=== PATIENT | male | born 1945 | race Caucasian/White ===

== ENCOUNTER 2017-07-02 13:45 | Outpatient (CLI) | payer MEDICARE ==
--- NOTE | 2017-07-02 14:30 | RAD ---
CHEST PA AND LATERAL: HISTORY: A 72-year-old male with a history of dyspnea. COMPARISON: 11/17/2012 FINDINGS: Left ICD. Heart size is within normal limits. Lungs are clear. No pneumonia, edema, pleural effusi on, or other acute process. IMPRESSION: 1. No significant acute intrathoracic disease. 2. Mild stable chronic changes. 3. Left implantable cardioverter-defibrillator. 4. Atherosclerosis of the aorta. POS: LUC
== END 2017-07-02 13:46 | disposition home or self-care (01) ==
LOC: RAD 13:45
PROVIDERS: ATTEND Internal Medicine Pulmonary Disease
DX: R06.00 Dyspnea, unspecified (principal); I70.0 Atherosclerosis of aorta; Z95.810 Presence of automatic (implantable) cardiac defibrillator
CPT/HCPCS: 71046

== ENCOUNTER 2017-08-13 20:30 | Outpatient (CLI) | payer MEDICARE | END 2017-08-13 20:31 | disposition home or self-care (01) | LOC: SLEEPLAB 20:30 | PROVIDERS: ATTEND Internal Medicine Pulmonary Disease | DX: G47.33 Obstructive sleep apnea (adult) (pediatric) (principal); R53.83 Other fatigue; J44.9 Chronic obstructive pulmonary disease, unspecified; I11.0 Hypertensive heart disease with heart failure; I50.9 Heart failure, unspecified; I25.10 Atherosclerotic heart disease of native coronary artery without angina pectoris; R09.02 Hypoxemia; I25.2 Old myocardial infarction; Z86.73 Personal history of transient ischemic attack (TIA), and cerebral infarction without residual deficits | CPT/HCPCS: 95810 ==

== ENCOUNTER 2017-09-14 19:30 | Outpatient (CLI) | payer MEDICARE | END 2017-09-14 19:31 | disposition home or self-care (01) | LOC: SLEEPLAB 19:30 | PROVIDERS: ATTEND Internal Medicine Pulmonary Disease | DX: G47.33 Obstructive sleep apnea (adult) (pediatric) (principal); J44.9 Chronic obstructive pulmonary disease, unspecified; I11.0 Hypertensive heart disease with heart failure; I50.9 Heart failure, unspecified; I25.10 Atherosclerotic heart disease of native coronary artery without angina pectoris; I63.9 Cerebral infarction, unspecified; I21.9 Acute myocardial infarction, unspecified; E66.9 Obesity, unspecified; R09.02 Hypoxemia; Z68.38 Body mass index [BMI] 38.0-38.9, adult | CPT/HCPCS: 95811 ==

== ENCOUNTER 2018-08-28 14:29 | Inpatient (IN) | payer MEDICARE ==
--- NOTE | 2018-08-28 15:14 | PDOC.FPRHP ---
- History of Present Illness Chief Complaint: Weakness History of Present Illness: Mr. Palomares presents for a few month history of weakness and falls He reports that he has had generalized weakness that he is unable to further describe, no focal weakness, seizure-like activity, trauma, or syncope. He has burning with urination and urinary frequency for the past 3-4 days. he denies flank pain, fever, or chills. He reports no recent weight gain, orthopnea, but does report occasional chest pain, RUSS, lower abdominal pain, and joint pain. paresthesias in lower extremities and chronic wounds and edema, not worsening. He lives at home with his and son, normally cares for himself. He has been trying to "get off" all of his medications and has not taken any in the past 3 days. ED Course: CTA brain, chest CTA, XRay chest/pelvis CBC, CMP, CK, BNP - Allergies/Adverse Reactions Allergies Allergy/AdvReac Type Severity Reaction Status Date / Time No Known Allergies Allergy Unverified 02/03/18 15:43 - Home Medications Medication Instructions Recorded Confirmed Type Insulin Glargine [Lantus] 25 units SC HS vial 02/07/18 02/07/18 Rx Aspirin [Ecotrin Regular Strength] 325 mg PO DAILY tab 02/11/18 08/28/18 Rx Atorvastatin Calcium [Lipitor] 20 mg PO HS tab 02/11/18 Rx Carvedilol [Coreg] 6.25 mg PO BID tab 02/11/18 08/28/18 Rx Furosemide [Lasix] 80 mg PO 0900,1800 tab 02/11/18 Rx Glimepiride [Amaryl] 2 mg PO BID-AC tab 02/11/18 Rx Levothyroxine Sodium [Synthroid] 50 mcg PO 0600 tab 02/11/18 08/28/18 Rx Mometasone/Formoterol 100/5 2 puff INH BID-RT aer 02/11/18 Rx [Dulera 100 mcg/5 mcg Inhaler] Nitroglycerin [Nitrostat] 0.4 mg SL Q5MIN PRN tab 02/11/18 08/28/18 Rx Spironolactone [Aldactone] 25 mg PO DAILY tab 02/11/18 08/28/18 Rx Tamsulosin HCl [Flomax] 0.4 mg PO HS cap 02/11/18 08/28/18 Rx Acetaminophen [Tylenol Regular 650 mg PO Q4H PRN 08/28/18 08/28/18 History Strength] Acetaminophen [Tylenol Regular 650 mg PO Q4H PRN 08/28/18 08/28/18 History Strength] Fluticasone/Salmeterol [Advair 1 inh IH BID 08/28/18 08/28/18 History Diskus 250/50] Gabapentin [Neurontin] 300 mg PO HS 08/28/18 08/28/18 History - History PMHx:cva with left sided weakness, hypothyroid, copd, neuropathy, coronary artery disease, DMII, HTN, left testicular cancer-non metastatic PSHx: cardiac stents x 4, pacemaker FHx: NC Social: 1-2 packs a day for 60 years, ~ 120 pk years, no alcohol/drugs - Review of Systems General: reports: weight/appetite/sleep changes (sleeps more since becoming blind in right eye). denies: fever/chills Eyes: reports: vision changes ENT: reports: rhinorrhea. denies: nasal congestion Respiratory: reports: shortness of breath. denies: cough Cardiovascular: reports: chest pain, palpitation, paroxysmal nocturnal dyspnea. denies: orthopnea Gastrointestinal: reports: abdominal pain. denies: nausea, vomiting, diarrhea Genitourinary: reports: dysuria, polyuria Skin: denies: rashes, jaundice Musculoskeletal: reports: pain, swelling, arthritis/arthralgias Neurological: reports: numbness (hands and legs), weakness. denies: syncope, seizure Psychological: reports: depression. denies: anxiety - Vital signs BP: 176/103, Pulse: 60, Resp: 22, Temp: 97.9 (Oral), Pain: 6, O2 sat: 97 on 2L Oxygen - Physical Exam Constitutional: NAD, other (somnolent during exam) HEENT: normocephalic and atraumatic, grossly normal hearing, MMM, other (R eye erythema, opacity, injection. white tongue covering, poor dentition) Neck: supple, trachea midline, no LAD, no JVD, no bruits Chest: no-tender to palpation, no lesions Heart: RRR, other (murmur present, distant heart sounds,) FMR H&P: A/P - Problem List (1) DMII (diabetes mellitus, type 2) Current Visit: Yes Status: Acute (2) Elevated brain natriuretic peptide (BNP) level Current Visit: Yes Status: Acute Code(s): R79.89 - OTHER SPECIFIED ABNORMAL FINDINGS OF BLOOD CHEMISTRY (3) Elevated CK Current Visit: Yes Status: Acute (4) Hypothyroid Current Visit: Yes Status: Acute Code(s): E03.9 - HYPOTHYROIDISM, UNSPECIFIED (5) HTN (hypertension) Current Visit: Yes Status: Acute Code(s): I10 - ESSENTIAL (PRIMARY) HYPERTENSION (6) CAD (coronary artery disease) Current Visit: Yes Status: Acute Code(s): I25.10 - ATHSCL HEART DISEASE OF [place] CORONARY ARTERY W/O ANG PCTRS (7) Fall at home Current Visit: No Status: Acute Code(s): W19.XXXA - UNSPECIFIED FALL, INITIAL ENCOUNTER; Y92.009 - UNSP PLACE IN UNSP NON-INSTITUT (PRIVATE) RESIDENCE PLACE (8) Osteoarthritis Current Visit: No Status: Acute Code(s): M19.90 - UNSPECIFIED OSTEOARTHRITIS , UNSPECIFIED SITE (9) Physical deconditioning Current Visit: No Status: Acute Code(s): R53.81 - OTHER MALAISE (10) COPD (chronic obstructive pulmonary disease) Current Visit: Yes Status: Acute - Plan Physical deconditioning - multiple falls at home, reported progressive weakness - PT/OT/CM consulted, inpatient rehab screen - TSH, B12, folate pending elevated BNP - echo pending - cxr/pe neg for acute fluid overload Elevated CK - hold fluids pending echo - monitor daily HTN - continue home meds DMII - continue home meds - mild SSI CAD - aware, no chest pain, EKG neg for ST elevation/T wave changes - trop negx1 UTI - s/p rochepin in ED, continue - monitor CBC COPD - aware, monitor Code: ppx: lovenox Dispo: admit to medical for further evaluation and treatment for deconditioning FMR H&P: Upper Level - Pertinent history 73 yr old male with PMH as noted above and comes in for fall today. He reports recently increasing frequency of falls. Feels like his hips and knees hurt and knees give out. Lives at home with his . Has help from son and brother in law. Last saw PCP about 3 months ago but wasn't having the falls at that time. 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 Says he woke up one morning and was totally blind about 7-8 months ago. 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 Right now, he is having a headache that is all over, and just sierra achy. Has residual left sided UE/LE weakness form stroke 3 years ago. He went from 348 lbs to 265 lbs due to trying to loose weight (cutting down on intake). Last day he took meds was 3 days ago. He has been trying to do away with his meds so he only takes it when he feels bad. - Pertinent findings Gen: patient is resting with eyes closed by easily arousable and is oriented to person, place, and time. in NAD. Heart: faint heart sounds, with RRR, and no M/R/G noted Lungs: CTAB, no wheezes, rhales, crackles, rhonchi however he has poor respiratory effort and Ext: Elephantitis changes of bilateral lower extremities with thickened scaly discolored EKG: left bundle branch block, NSR, T wave inversion in lateral lead - Plan Date/Time: 08/28/181511 I, [Taylor Milton], have evaluated this patient and agree with findings/plan as outlined by internet specialist resident. Pertinent changes/additions are listed here. 73 yr old male presents with weakness and multiple falls UTI -reports dysuia, no WBC -patient has intermittently been taking amoxicillin -urine culture pending -cont on rocephin Possible new onset heart failure -BNP elevated from 39 to 250 over 8 months period. -echo pending Weakness likely 2/2 UTI vs New onset heart failure vs physical deconditioning -treat UTI -ECHO -PT/OT consults Diabetes, CAD, and other chronic medical conditions per internet specialist's note above PCP: Mireya Code Status: Full as discussed with patient and daughter and grandaughter were at bedside Dispo: likely in 2-3 days however dependent on clinical course and would likely benefit from rehab placement for deconditioning Addendum - Attending - Attending Attestation Date/Time: 08/28/182128 I personally evaluated the patient and discussed the management with Dr. Larry and team. I agree with and repeated the History, Examination, Assessment and Plan documented above with any addition or exceptions noted below. Vitals reviewed NAD,resting comfortably NCAT, PERRL, no injection; pinna normal without lesion or deformity; mmm without lesion No LAD BS+, NTTP, no palp organomegaly Lower extremity chronic changes noted Motor 5/5 BLE, unable to check proprioception Low FA and B12; will supplement. Consider IM/IV b12 as well. He is describing symptoms that could easily fit with these deficiencies. He also is on a PPI and metformin, both a/w these deficiencies.
[2018-08-28] MEDS ORDERED: Acetaminophen 325 MG TAB PO PRN (16:28)
[2018-08-28] MEDS ORDERED: HumaLOG 300 UNITS/3 ML VIAL SC PRN ×2 (16:28)
[2018-08-28] MEDS ORDERED: Dextrose 5% in Water 1,000 ML IV PRN (16:28)
[2018-08-28] MEDS ORDERED: Ondansetron PF 4 MG/2 ML Vial IVP PRN (16:28)
[2018-08-28] MEDS ORDERED: Ondansetron ODT 4 MG TAB PO PRN (16:28)
[2018-08-28] MEDS ORDERED: Dextrose 50% Abboject 50 ML SYRINGE SLOW IVP PRN (16:28)
[2018-08-28 17:29] VITALS: BMI 38.0
[2018-08-28 19:02] LABS: Folate (Folic Acid) 5.4 ng/mL (7.0-31.4)
[2018-08-28] MEDS: Cyanocobalamin (Vitamin B-12) 1,000 MCG TAB PO SCH (20:35)
[2018-08-28] MEDS: Insulin Glargine 25 UNITS in Pre-Filled Syringe SC SCH (20:36)
[2018-08-28] MEDS: Nicotine 21 MG PATCH TD SCH (20:36)
[2018-08-28] MEDS ORDERED: Folic Acid 1 MG TAB PO SCH (21:00)
[2018-08-28 21:52] LABS: Troponin I 0.021 ng/mL (< 0.028)
[2018-08-29 05:02] LABS: #Eosinphils 0.3 thou/uL (0.0-0.7); #Lymphocytes 1.1 thou/uL (1.20-3.40); #Monocytes 0.4 thou/uL (0.11-0.59); #Neutrophils 3.4 thou/uL (1.40-6.50); %Basophils 0.6 % (0.0-1.0); %Eosinophils 5.4 % (0.0-10.0); %Lymphocytes 21.3 % (21.0-51.0); %Monocytes 7.6 % (0.0-10.0); Mean Corpuscular HGB CONC 32.7 g/dL (32.0-36.0); Mean Corpuscular Hemoglobin 33.2 pg (27.0-31.0); Mean Platelet Volume 8.4 fL (7.4-10.4); Platelet Count 121 thou/uL (130-400); White Blood Cell (WBC) Count 5.3 thou/uL (4.8-10.8)
[2018-08-29 05:27] LABS: ALT (SGPT) 14 U/L (8-55); AST (SGOT) 20 U/L (5-34); Albumin 3.3 g/dL (3.4-4.8); Alkaline Phosphatase 48 U/L (40-150); Anion Gap 9 mmol/L (10-20); BUN (Urea Nitrogen) 10 mg/dL (8.4-25.7); CK (CPK) 147 U/L (30-200); Calc. Creatinine Clearance 141 mL/min (70-130); Calcium 8.8 mg/dL (7.8-10.44); Carbon Dioxide 32 mmol/L (23-31); Chloride 102 mmol/L (98-107); Estimated GFR-MDRD Greater than 90; Globulin 2.4 g/dL (2.4-3.5); Glucose 90 mg/dL (83-110); Potassium 3.9 mmol/L (3.5-5.1); Protein, Total 5.7 g/dL (5.8-8.1); Sodium 139 mmol/L (136-145)
--- NOTE | 2018-08-29 07:01 | PDOC.FM ---
- Subjective Subjective: pt sitting up in bed, attempting to urinate into folgers container. reports improved weakness, denies SOB/CP - Objective Vital Signs & Weight: Vital Signs (12 hours) Temp Pulse Resp BP BP Pulse Ox 08/29/18 06:40 92 L 08/29/18 03:31 99.4 F 62 20 164/71 H 91 L 08/28/18 20:28 98 F 64 18 132/77 93 L 08/28/18 19:50 93 L Weight Weight 120.202 kg Result Diagrams: 08/29/18 04:32 08/29/18 04:32 Phys Exam - Physical Examination Constitutional: NAD HEENT: moist MMs Neck: no JVD Respiratory: wheezing present Cardiovascular: RRR, no significant murmur Gastrointestinal: soft Musculoskeletal: edema present Neurological: moves all 4 limbs Lymphatic: no nodes Psychiatric: normal affect Skin: normal turgor Dx/Plan (1) DMII (diabetes mellitus, type 2) Status: Acute (2) Elevated brain natriuretic peptide (BNP) level Code(s): R79.89 - OTHER SPECIFIED ABNORMAL FINDINGS OF BLOOD CHEMISTRY Status : Acute (3) Elevated CK Status: Acute (4) Hypothyroid Code(s): E03.9 - HYPOTHYROIDISM, UNSPECIFIED Status: Acute (5) HTN (hypertension) Code(s): I10 - ESSENTIAL (PRIMARY) HYPERTENSION Status: Acute (6) CAD (coronary artery disease) Code(s): I25.10 - ATHSCL HEART DISEASE OF [place] CORONARY ARTERY W/O ANG PCTRS Status: Acute (7) Fall at home Code(s): W19.XXXA - UNSPECIFIED FALL, INITIAL ENCOUNTER; Y92.009 - UNSP PLACE IN [email or web address]ENCE [facility] Status: Acute (8) Osteoarthritis Code(s): M19.90 - UNSPECIFIED OSTEOARTHRITIS, UNSPECIFIED SITE Status: Acute (9) Physical deconditioning Code(s): R53.81 - OTHER MALAISE Status: Acute (10) COPD (chronic obstructive pulmonary disease) Status: Acute - Plan Plan: Physical deconditioning - multiple falls at home, reported progressive weakness - PT/OT/CM consulted, inpatient rehab screen - TSH wnl - B12, folate low, supplement elevated BNP - echo pending - cxr/pe neg for acute fluid overload Elevated CK - hold fluids pending echo - monitor daily HTN - continue home meds DMII - continue home meds - mild SSI CAD - aware, no chest pain, EKG neg for ST elevation/T wave changes - trop negx1 UTI - s/p rochepin in ED, continue - monitor CBC COPD - aware, monitor Code: full ppx: lovenox Dispo: further evaluation and treatment for deconditioning
[2018-08-29] MEDS: Enoxaparin Sodium 40 MG/0.4 ML SYRINGE SC SCH (09:17)
[2018-08-29] MEDS: Insulin Glargine 25 UNITS in Pre-Filled Syringe SC SCH ×2 (09:17→21:28)
[2018-08-29] MEDS: Folic Acid 1 MG TAB PO SCH (09:17)
--- NOTE | 2018-08-29 15:17 | PRG ---
DATE OF SERVICE: Mr. Palomares is a 73-year-old man, who was admitted with multiple falls at home and generalized weakness. These seem to be related to probably his obesity and sedentary habits. He was also found to have significant B12 and folate deficiencies and these are being corrected. This morning, he is awake, alert, in no distress. His CBC did show a normal hemoglobin of 13, but an MCV of 102. Chemistries; sodium is 139, potassium 3.9, chloride 102, bicarb 32, BUN 10, creatinine 0.77. Liver enzymes were normal. He is also a type 2 diabetic with glucose ranging in the hospital here from 106 to 110. Likely ready for discharge today or tomorrow. Job ID: [id number]
[2018-08-29] MEDS ORDERED: Nitroglycerin 0.4 MG TAB (25 Tab Bottle) SL PRN (16:21)
[2018-08-29] MEDS ORDERED: hydrALAZINE 20 MG/ML VIAL SLOW IVP PRN (16:22)
[2018-08-29] MEDS: Carvedilol 6.25 MG TAB PO SCH (17:51)
[2018-08-29] MEDS ORDERED: cefTRIAXone\\ROCEPHIN 1 GM in Sodium Chloride 0.9% 100 ML IVPB SCH (18:00)
[2018-08-29] MEDS: Mometasone/Formoterol 120 PUFF INHALER INH SCH (19:28)
[2018-08-29] MEDS ORDERED: Gabapentin 300 MG CAP PO SCH (21:00)
[2018-08-29] MEDS ORDERED: Tamsulosin HCl 0.4 MG CAP PO SCH (21:00)
[2018-08-29] MEDS: Cyanocobalamin (Vitamin B-12) 1,000 MCG TAB PO SCH (21:28)
[2018-08-29] MEDS: Nicotine 21 MG PATCH TD SCH (21:33)
[2018-08-30] MEDS ORDERED: Levothyroxine Sodium 50 MCG TAB PO SCH (06:00)
--- NOTE | 2018-08-30 06:35 | PDOC.FM ---
- Subjective Subjective: pt sitting comfortably in chair, reports feeling better, ambulating and denies SOB - Objective Vital Signs & Weight: Vital Signs (12 hours) Temp Pulse Resp BP Pulse Ox 08/30/18 04:24 97.4 F L 61 16 129/62 93 L 08/30/18 00:00 97.6 F 62 18 169/81 H 93 L 08/29/18 20:05 98 F 60 18 181/77 H 94 L 08/29/18 19:28 62 16 Weight Admit Weight 120.202 kg Weight 120.202 kg I&O: 08/28/18 08/29/18 08/30/18 06:59 06:59 06:59 Intake Total 1250 Output Total 225 Balance 1025 Result Diagrams: 08/29/18 04:32 08/29/18 04:32 Phys Exam - Physical Examination Constitutional: NAD HEENT: moist MMs Neck: full ROM Respiratory: clear to auscultation bilateral Cardiovascular: RRR, no significant murmur Gastrointestinal: soft Musculoskeletal: edema present Neurological: moves all 4 limbs Lymphatic: no nodes Psychiatric: normal affect Deviation from normal: LE rash at baseline Dx/Plan (1) DMII (diabetes mellitus, type 2) Status: Acute (2) Elevated brain natriuretic peptide (BNP) level Code(s): R79.89 - OTHER SPECIFIED ABNORMAL FINDINGS OF BLOOD CHEMISTRY Status : Acute (3) Elevated CK Status: Acute (4) Hypothyroid Code(s): E03.9 - HYPOTHYROIDISM, UNSPECIFIED Status: Acute (5) HTN (hypertension) Code(s): I10 - ESSENTIAL (PRIMARY) HYPERTENSION Status: Acute (6) CAD (coronary artery disease) Code(s): I25.10 - ATHSCL HEART DISEASE OF [place] CORONARY ARTERY W/O ANG PCTRS Status: Acute (7) Fall at home Code(s): W19.XXXA - UNSPECIFIED FALL, INITIAL ENCOUNTER; Y92.009 - UNSP PLACE IN UNSP NON-INSTITUT (PRIVATE) RESIDENCE PLACE Status: Acute (8) Osteoarthritis Code(s): M19.90 - UNSPECIFIED OSTEOARTHRITIS, UNSPECIFIED SITE Status: Acute (9) Physical deconditioning Code(s): R53.81 - OTHER MALAISE Status: Acute (10) COPD (chronic obstructive pulmonary disease) Status: Acute - Plan Plan: Physical deconditioning - multiple falls at home, reported progressive weakness - PT/OT/CM consulted, inpatient rehab screen - TSH wnl - B12, folate low, supplement elevated BNP - echo pending - cxr/pe neg for acute fluid overload - will start PO lasix, IVPx1 Elevated CK - hold fluids pending echo - monitor daily HTN - continue home meds - consistently elevated, start lisinopril-HCTZ DMII - continue home meds - mild SSI CAD - aware, no chest pain, EKG neg for ST elevation/T wave changes - trop negx1 UTI - s/p rochepin in ED, continue - monitor CBC COPD - aware, monitor Code: full ppx: lovenox Dispo: continue treatment for deconditioning, stable for DC when available Addendum - Attending - Attending Attestation Date/Time: 08/30/18 7912 I personally evaluated the patient and discussed the management with Dr. Larry. I agree with the History, Examination, Assessment and Plan documented above with any addition or exceptions noted below. The patient is sitting up in a chair and is breathing well off oxygen. he states he is feeling much better. Awaiting inpt rehab placement.
[2018-08-30] MEDS ORDERED: Furosemide 40 MG/4 ML VIAL SLOW IVP SCH (06:45)
[2018-08-30] MEDS: Mometasone/Formoterol 120 PUFF INHALER INH SCH ×2 (07:24→19:30)
[2018-08-30] MEDS ORDERED: Potassium Chloride 20 MEQ TAB PO SCH (08:00)
[2018-08-30] MEDS ORDERED: Spironolactone 25 MG TAB PO SCH (09:00)
[2018-08-30] MEDS ORDERED: Lisinopril/Hydrochlorothiazide 10 mg/12.5 mg Tablet PO SCH (09:00)
[2018-08-30] MEDS ORDERED: Aspirin 325 mg Enteric Coated Tablet PO SCH (09:00)
[2018-08-30] MEDS: Enoxaparin Sodium 40 MG/0.4 ML SYRINGE SC SCH (10:34)
[2018-08-30] MEDS: Insulin Glargine 25 UNITS in Pre-Filled Syringe SC SCH (10:34)
[2018-08-30] MEDS: Folic Acid 1 MG TAB PO SCH (10:36)
[2018-08-30] MEDS: Carvedilol 6.25 MG TAB PO SCH (10:38)
[2018-08-30 17:48] VITALS: BP 148/75; TEMP 99.4
[2018-08-30] MEDS ORDERED: Cipro 250 MG TAB PO SCH (20:00)
--- NOTE | 2018-08-31 03:44 | DIS ---
DATE OF ADMISSION: 08/28/2018 DATE OF DISCHARGE: 08/30/2018 ADMITTING ATTENDING: Prakash Shields MD. RESIDENT: Triston Larry DO. CONSULT: None. IMAGING: Echocardiogram pending read. MEDICATIONS: 1. Lantus 25 units SC h.s. 2. Aspirin 325 mg p.o. daily. 3. Coreg 6.25 mg p.o. b.i.d. 4. Nitrostat 0.4 mg SL q.5 minutes p.r.n. chest pain. 5. Aldactone 25 mg p.o. daily. 6. Flomax 0.4 mg p.o. at bedtime. 7. Synthroid 50 mcg p.o. at 0600. 8. Advair Diskus one inhaled b.i.d. 9. Acetaminophen 650 mg p.o. q.4 hours p.r.n. 10. Gabapentin 300 mg p.o. at bedtime. 11. Ciprofloxacin 250 mg p.o. b.i.d. 12. Vitamin B12 1000 mcg p.o. at bedtime. 13. Folic acid 1 mg p.o. daily. 14. Lasix 20 mg p.o. daily. 15. Lisinopril and hydrochlorothiazide 1 tab p.o. daily. 16. Potassium chloride 20 mEq p.o. q.a.m. with meals. DISCONTINUE MEDICATIONS: Amoxicillin 875 mg p.o. b.i.d. PRIMARY DIAGNOSIS: Physical deconditioning. SECONDARY DIAGNOSES: 1. Elevated BNP. 2. Elevated CK. 3. Hypertension. 4. Diabetes mellitus type 2. 5. Coronary artery disease. 6. Urinary tract infection. 7. Chronic obstructive pulmonary disease. HISTORY OF PRESENT ILLNESS AND HOSPITAL COURSE: Mr. Palomares is a 73-year-old male who presents for a few month history of weakness and falls. He has generalized weakness that he is unable to further describe. No focal weakness, seizure activity, trauma, or syncope. He also reports the burning with his urination and urinary frequency over the past 3-4 days. Denies flank pain, fever, or chills. No recent weight gain or orthopnea. Does report occasional chest pain, dyspnea on exertion, lower abdominal pain, joint pain, paresthesias in his lower extremities, and chronic wounds with edema not worsening. He lives at home with his and son and has recently been trying to discontinue all of his medications and has not taken any in the past 3 days. He presented to the ER like this. CTA of brain was negative. Chest CTA and x-ray of chest and pelvis were all negative. CBC, CMP, CK, and BMP were significant for a transaminitis, an elevated CK, and an elevated BNP without a diagnosis of congestive heart failure. Significant past medical history for coronary artery disease and a CVA with left-sided weakness. The patient was admitted to telemetry for further monitoring and evaluation. Blood pressure was elevated during hospital stay. Medications were started to control this. Lasix was given for fluid overload, presumably related to congestive heart failure. Echo was obtained, not read, placed on followup service to follow up with when the patient is in inpatient rehab. It was also discovered that the patient had vitamin B12 and folate deficiencies consistent with his overall health status, malnourished, and vitamin deficient. These were repleted. CK normalized and volume overload was treated. The patient status improved, determined that he was a candidate for inpatient rehab and this would be the best way to improve the patient's generalized weakness and deconditioning. He was deemed stable for discharge to inpatient rehab. DISCHARGE INSTRUCTIONS: 1. Location: [facility]. 2. Diet: ADA, heart healthy. 3. Activity: As tolerated. 4. Therapies: PT and OT. 5. Follow up with inpatient rehab team upon discharge. Job ID: [id number]
[2018-08-31] MEDS ORDERED: Furosemide 20 MG TAB PO SCH (09:00)
--- NOTE | 2018-09-02 05:04 | PQF ---
[employer] Alarm Investigator Crystal Reports Winform Viewer ASAFELENO NORIS MONCADA [id number] [id number] [id number] CLINICAL DOCUMENTATION CLARIFICATION FORM: POST DISCHARGE Addendum to original discharge summary date: ____ Late entry note date: __ DATE: 09/02/18 ATTN: NORIS Vasquez Please exercise your independent, professional judgment in responding to the clarification form. Clinical indicators are provided on the bottom of this form for your review Can you please further specify the type and acuity of patients heart failure. Please check appropriate box(s): HEART FAILURE: A. TYPE: [ ] Systolic / HFrEF [ X ] Diastolic / HFpEF [ ] Combined Systolic / Diastolic B. ACUITY [ X ] Acute [ ] Acute on Chronic [ ] Chronic [ ] Other diagnosis please specify [ ] Unable to determine For continuity of documentation, please document condition throughout progress notes and discharge summary. Thank You. CLINICAL INDICATORS - SIGNS / SYMPTOMS / LABS H and P 4/ pg5 Dr. Larry- Possible new onset heart failure H and P 08/[address] Larry- BNP elevated from 39 to 250 over 8 months period H and P 08/[address] Larry- Weakness likely 2/2 UTI vs New onset hearth failure vs physical deconditioning Family Medicine pg.2PN 08/29 Dr. Larry - Elevated CK DS 08/30/[address] Larry- Lasix was given for fluid overload, presumably related to congestive heart failure DS 08/30/[address] Larry- Does report occasional chest pain, dyspnea on exertion chronic wounds with edema not worsening. DS 08/30/[address] Larry- elevated BNP without diagnosis of congestive heart failure. Echocardiogram (TTE) Report 08/30 - LVEF estimated at 55-60% Echocardiogram (TTE) Report:08/30 - E/A flow reversal noted. Suggestive of diastolic dysfunction RISKS: Diabetes- H and P 4/[address] Larry Hypertension- H and P 4/[address] Larry Coronary artery disease- H and P 4/[address] Larry 1-2 packs a day for 60 years- H and P 4/[address] Larry Obesity Progress Note 08/[address] Juarez TREATMENTS: Furosemide (Lasix) 40mg IV-MAR Spironolactone 25mg PO Daily-MAR Carvedilol 6.25 mg PO BID-MAR Echocardiogram (TTE) (This form is maintained as a part of the permanent medical record) 2014 [employer]. All Rights Reserved Jonathan [email or web address] [not provided] [email or web address]
== END 2018-08-30 19:05 | DRG 689 ==
LOC: ERS 14:29 → T4-B 17:01 → 2NO 19:36
PROVIDERS: ADMIT Emergency Medicine; ATTEND Emergency Medicine
DX: N39.0 Urinary tract infection, site not specified (principal); I50.31 Acute diastolic (congestive) heart failure; I69.354 Hemiplegia and hemiparesis following cerebral infarction affecting left non-dominant side; E03.9 Hypothyroidism, unspecified; J44.9 Chronic obstructive pulmonary disease, unspecified; E11.40 Type 2 diabetes mellitus with diabetic neuropathy, unspecified; I25.10 Atherosclerotic heart disease of native coronary artery without angina pectoris; I11.0 Hypertensive heart disease with heart failure; H54.40 Blindness, one eye, unspecified eye; M19.90 Unspecified osteoarthritis, unspecified site; F17.210 Nicotine dependence, cigarettes, uncomplicated; E53.8 Deficiency of other specified B group vitamins; F32.9 Major depressive disorder, single episode, unspecified; Z79.4 Long term (current) use of insulin; Z91.040 Latex allergy status; Z79.82 Long term (current) use of aspirin; Z95.5 Presence of coronary angioplasty implant and graft; Z95.0 Presence of cardiac pacemaker; Z79.899 Other long term (current) drug therapy; Z79.84 Long term (current) use of oral hypoglycemic drugs; R29.6 Repeated falls; E66.9 Obesity, unspecified; Z68.38 Body mass index [BMI] 38.0-38.9, adult; Z79.51 Long term (current) use of inhaled steroids; I25.2 Old myocardial infarction
CPT/HCPCS: 36415; 36416; 80053; 82550; 82607; 82746; 84443; 85025; 85652; 93005; 93306; J0696; J1650; J1825; J1940; J7050

== ENCOUNTER 2019-10-06 16:23 | Inpatient (IN) | payer MEDICARE ==
[~2019-10-06 16:23] MED LIST: Iopamidol 370 76% 100 ML VIAL ONE
[2019-10-06] MEDS ORDERED: hydrALAZINE 20 MG/ML VIAL ONE (19:05)
--- NOTE | 2019-10-06 19:30 | PDOC.FPRHP ---
- History of Present Illness Chief Complaint: L sided weakness and slurred speech History of Present Illness: 74 y/o M with pmhx of DM II, previous CVA with L sided deficits, a dn prior TN presents to ER from [place] transfer after 11:30 AM his HH nurse nothiced his speech was slurred and more weakness on L side from chronic deficits. Pt states he felt normal and did not notice the concerns the nurse had. Pt was taken to ER in [place]. CT head showed old vs subacute cva. See report for full details. Pt states his symptoms are completely resolved upon time evaluated by me. He denies any LH, dizziness, MCNALLY. 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 C/o CP that occurs nightly. denies cough, fever or chills. Pt takes medications as prescribed, but unsure of medication names. All meds filled at [facility] pharmacy in [place]. PCP Dr. Carver, [place] - Allergies/Adverse Reactions Allergies Allergy/AdvReac Type Severity Reaction Status Date / Time No Known Allergies Allergy Verified 10/07/19 01:52 - Home Medications Medication Instructions Recorded Confirmed Type Insulin Glargine [Lantus] 25 units SC HS vial 02/07/18 08/29/18 Rx Aspirin [Ecotrin Regular Strength] 325 mg PO DAILY tab 02/11/18 08/28/18 Rx Carvedilol [Coreg] 6.25 mg PO BID tab 02/11/18 08/28/18 Rx Levothyroxine Sodium [Synthroid] 50 mcg PO 0600 tab 02/11/18 08/28/18 Rx Spironolactone [Aldactone] 25 mg PO DAILY tab 02/11/18 08/28/18 Rx Tamsulosin HCl [Flomax] 0.4 mg PO HS cap 02/11/18 08/28/18 Rx Acetaminophen [Tylenol Regular 650 mg PO Q4H PRN 08/28/18 08/28/18 History Strength] Fluticasone/Salmeterol [Advair 1 inh IH BID 08/28/18 08/28/18 History Diskus 250/50] Gabapentin [Neurontin] 300 mg PO HS 08/28/18 08/28/18 History Cipro 250 mg PO BID@0600,1999 #6 tab 08/30/18 Rx Cyanocobalamin (Vitamin B-12) 1,000 mcg PO HS #30 tab 08/30/18 Rx [Vitamin B-12] Folic Acid [Folvite] 1 mg PO DAILY #30 tab 08/30/18 Rx Furosemide [Lasix] 20 mg PO DAILY #30 tab 08/30/18 Rx Lisinopril/Hydrochlorothiazide 1 tab PO DAILY #30 tab 08/30/18 Rx [Prinizide] Nitroglycerin [Nitrostat] 0.4 mg SL Q5MIN PRN #0 tab 08/30/18 10/07/19 Rx Potassium Chloride [K-Dur] 20 meq PO QAM-WM #30 tab 08/30/18 10/07/19 Rx Albuterol Sulfate 2 puff INH BID PRN 10/07/19 10/07/19 History Atorvastatin Calcium [Lipitor] 40 mg PO HS #30 tab 10/07/19 Rx Clopidogrel Bisulfate [Plavix] 75 mg PO DAILY #30 tablet 10/07/19 Rx Folic Acid/Vit B Comp W-C 1 tab PO DAILY #30 tab 10/07/19 Rx [Nephro-Anushka] Insulin Glargine,Hum.Rec.Anlog 20 unit SQ DAILY 10/07/19 10/07/19 History [Basaglar Kwikpen U-100] Lisinopril [Zestril] 5 mg PO DAILY 10/07/19 10/07/19 History - History PMHx: HTN, HLD, DM II, HFpEF, penile skin cancer, elephantiasis and lymphedema BLE's, CAD And [place] S/P 4 stents, hypothyroidism, previous CVA with L sided deficits, COPD, R eye blindness, DJD lumbar spine PSHx: Pacemaker placement, Stents X4 05/2008 and 08/25/2011 FHx: father: DM , [place], CAD Son: suddenly via [place] at age 51, this occurred 2 weeks ago and pt grieving. Social: Lives at home with . Denies etoh, or drug use. smoked >50 years. Medications: medications need to be reconciled with pharmacy as pt unsure of medications. - Review of Systems General: denies: fever/chills Eyes: reports: other (R eye blind) Respiratory: denies: cough, shortness of breath Cardiovascular: reports: chest pain, edema. denies: palpitation Gastrointestinal: denies: nausea, vomiting, diarrhea, constipation Skin: reports: rashes (BLE) Musculoskeletal: reports: arthritis/arthralgias Psychological: reports: other (grieving from loss of son X2 weeks ago) - Vital signs BP: 160/74 HR: 85 RR: 18 Tmax: 97.9 Pox: 85% on ra Wt: 116 kg - Physical Exam Constitutional: NAD, awake, alert and oriented HEENT: no scleral icterus, grossly normal hearing, MMM -HEENT: R eye dull and clouded lens. L eye reactive pupil 2 mm Neck: supple, trachea midline Heart: RRR, normal S1/S2 -Heart: Distant heart sounds Lungs: CTAB, no respiratory distress, good air movement, no rales/rhonchi, no wheezing, no retractions Abdomen: soft, non-tender, bowel sounds present -Musculoskeletal: LLE decreased ROM and diminished strength, 4/5. Right sided and DEEP extremities 5/5 strength Neurological: no focal deficit, CN II-XII intact (with exception of R pupil non- reacative), normal sensation -Neurological: residual LLE weakness form previous CVA [id number] intact B [id number] intact B no altered sensation in 4 ext. -Skin: BLE bumpy, waxy and darkened skin BLE edema -Heme/Lymphatic: lymphedema in BLE Psychiatric: normal mood and affect, good judgment and insight FMR H&P: Results - Labs Result Diagrams: 10/07/19 03:27 10/07/19 03:27 - Radiology Interpretation CT scan - head Status: report reviewed by me (see report for full details.) FMR H&P: A/P - Problem List (1) TIA (transient ischemic attack) Status: Acute Code(s): G45.9 - TRANSIENT CEREBRAL ISCHEMIC ATTACK, UNSPECIFIED (2) COPD (chronic obstructive pulmonary disease) Status: Acute (3) DMII (diabetes mellitus, type 2) Status: Acute (4) HTN (hypertension) Status: Acute Code(s): I10 - ESSENTIAL (PRIMARY) HYPERTENSION (5) History of CVA (cerebrovascular accident) Status: Acute Code(s): Z86.73 - PRSNL HX OF TIA (TIA), AND CEREB INFRC W/O RESID DEFICITS (6) Pacemaker Status: Acute Code(s): Z95.0 - PRESENCE OF CARDIAC PACEMAKER (7) History of penile cancer Status: Acute Code(s): Z85.49 - PERSONAL HISTORY OF MALIG NEOPLASM OF MALE GENITAL ORGANS (8) History of heart attack Status: Acute Code(s): I25.2 - OLD MYOCARDIAL INFARCTION - Plan 74 y/o M admitted to Tele inpt for TIA/CVA rule out TIA, CVA rule out - CT head: small to mod infarction in R anterior cerebral artery territory, occurring sometime after 08/28/18. uncertain of old vs subacute. 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 No acute hemorrhages. Refer to official radiology report for more details. - MRI, CTA head and neck, and TTEcho ordered. -Pt has pacemaker and will need to find out if compatible with MRI. Nursing communication order placed. - Previous echo in 09/12: ef 55-60% with diastolic dysfunction - 24 hour permissive HTN. Symptoms tsarted around 11:30 AM 10/05. - FLP, A1C ordered DM II - Pt unsure of any home medications. He knows he has 7 different ones. Will start ASA and statin therapy until home med reconciled. -Nursing communication order set to seek pharmacy med recs. [facility] [place] [facility]. - SSI, ACHS accuchecks. Hx of TN with X4 stents Pacemaker placement - 6 yrs ago Hypothyroidism - continue home meds. 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 PT states he takes a blood thinner. Will continue once med reconciliation Dispo: stable, admit to tele inpt for TIA and CVA rule out. FMR H&P: Upper Level - Pertinent history 74 y/o M PMHx CVA with residual left sided weakness, hypothyroidism, COPD, CAD s /p stents x4, DM2, HTN presents as transfer from [place] ER for left sided weakness and slurred speech. His home health nurse had noted the changes and sent him to the ER. He denies noticing any slurred speech or worsened weakness. He has baseline residual left sided weakness that he states hasn't changed. In the ER in [place] he was given aspirin 325mg. In the ER in [place] he was given hydralazine 10mg. - Pertinent findings Vitals: BP 201/90, HR 60, RR 16, Temp 97.8, O2 sat 98% on RA PE: Gen - alert, oriented, NAD Ext - chronic vascular skin changes of lower extremities with edema bilaterally Neuro - CN II-XII intact, 4/5 strength of LUE, otherwise 5/5 strength with no sensory changes Brain CT: Small to mod infarcation in R ant cerebral artery distribution, new from prior CT in August. Mod old infarction in R middle cerebral artery distribution. No acute hemorrhage CXR: no acute process - Plan Date/Time: 10/06/191929 I, Taylor Rowe MD, PGY-3, have evaluated this patient and agree with findings/ plan as outlined by manager internal resident. Pertinent changes/additions are listed here. 1. CVA vs TIA s/p aspirin. Brain CT with possible acute vs subacute CVA. -Obs on stroke -Neuro checks -No TPA as back at baseline -CTA head and neck -MRI brain -Aspirin daily -FLP -PT/OT/ST 2. CAD s/p stents x4 -Cont home meds, needs med rec 3. DM2 -Accuchecks ACHS -SSI -Cont home meds, needs med rec 4. HTN -Needs med rec -Will continue 24 hrs permissive HTN Dispo: Obs on stroke VTE ppx: on anticoag at home, will get med rec and continue home med Code Status: Full Addendum - Attending - Attending Attestation Date/Time: 10/07/192047 I personally evaluated the patient and discussed the management with the team. I agree with the History, Examination, Assessment and Plan documented above with any addition or exceptions noted below.
[2019-10-06] MEDS ORDERED: Acetaminophen 650 MG Suppository PR PRN (19:40)
[2019-10-06] MEDS ORDERED: Dextrose 50% Abboject 50 ML SYRINGE SLOW IVP PRN (19:47)
[2019-10-06] MEDS ORDERED: HumaLOG 300 UNITS/3 ML VIAL SC PRN ×2 (19:47)
[2019-10-06] MEDS ORDERED: Dextrose 5% in Water 1,000 ML IV PRN (19:47)
[2019-10-06] MEDS ORDERED: Atorvastatin Calcium 40 MG TAB PO SCH (21:00)
[2019-10-06 21:56] VITALS: BMI 39.2
[2019-10-06] MEDS: Nitroglycerin 0.4 MG TAB (25 Tab Bottle) SL PRN (22:01)
--- NOTE | 2019-10-06 22:11 | CT ---
CTA OF THE HEAD AND NECK UTILIZING IV CONTRAST AND 3D REFORMATTED IMAGIN10/06/19 INDICATION: 74-year-old male with history of TIAs. COMPARISON: Noncontrast CT of the brain dated 10/06/19 and 08/28/18. FINDINGS: CTA NECK: There is complete occlusion of the right internal carotid artery from its origin. There is moderate d egree of stenosis involving the origin of the right external carotid artery. The right internal carot id artery is occluded to the level of the supraclinoid ICA where there is opacification likely throug h collaterals to the [place]. There is 40% luminal caliber narrowing involving the origin of the left internal carotid artery due t o partially calcified atherosclerotic plaque. The left internal carotid artery is tortuous throughout its remaining course but remains patent. The origin and proximal aspect of the right vertebral artery is not well seen due to spray artifact f rom IV contrast administration through the venous structures of the right upper extremity. The visual ized cervical course of the right vertebral artery is patent throughout its remaining course. The lef t vertebral artery appears patent. The visualized lung apices demonstrate scattered emphysema. There are coronary artery calcifications. There is a pacemaker overlying the left chest wall. No enlarged lymph nodes are evident. Aerodigest blake tract appears within normal limits. There is scattered degenerative and osteoarthritic change of the cervical spine. There is reversal of the normal cervical lordosis. No definite acute osseous abno rmality is noted. CTA OF THE HEAD: The reconstituted right ICA is seen at the level of the supraclinoid right ICA with filling of the ri ght MCA and SILVINA branches. Remote infarcts are seen involving the right MCA distribution. The ACAs william ear patent. The left ICA, left MCA appear patent. Both scale tester appear patent. The basilar and vertebral artery segments within the intracranial course appear patent. No definite abnormal region of enhancement is evident. The visualized orbits appear within normal ellis its. The visualized paranasal sinuses are clear. IMPRESSION: 1. Complete occlusion of the right ICA with reconstitution at the level of the right supraclinoi d ICA through collaterals via the [place]. 2. 40% luminal canal narrowing involving the origin of the left ICA. 3. Poor visualization of the origin of the proximal aspect of the right vertebral artery; howeve r, the visualized cervical segments appear widely patent. Intracranial course of vertebral arteries a ppear patent. 4. Remote appearing right MCA distribution infarct. POS: BH
[2019-10-07] MEDS: Acetaminophen 325 MG TAB PO PRN ×2 (03:16→15:02)
[2019-10-07 03:44] LABS: #Eosinphils 0.3 thou/uL (0.0-0.7); #Lymphocytes 1.3 thou/uL (1.20-3.40); #Monocytes 0.5 thou/uL (0.11-0.59); #Neutrophils 3.5 thou/uL (1.40-6.50); %Basophils 0.4 % (0.0-1.0); %Eosinophils 4.6 % (0.0-10.0); %Lymphocytes 23.4 % (21.0-51.0); %Monocytes 9.6 % (0.0-10.0); Hemoglobin 13.1 g/dL (14.0-18.0); Hemoglobin A1c 5.5 % (4.0-6.0); Mean Corpuscular HGB CONC 31.8 g/dL (32.0-36.0); Mean Corpuscular Hemoglobin 33.1 pg (27.0-31.0); Platelet Count 142 thou/uL (130-400); RBC Distribution Width 13.1 % (11.5-14.5); Red Blood Cell (RBC) Count 3.96 mill/uL (4.70-6.10); White Blood Cell (WBC) Count 5.6 thou/uL (4.8-10.8)
[2019-10-07 03:56] LABS: Anion Gap 12 mmol/L (10-20); BUN (Urea Nitrogen) 19 mg/dL (8.4-25.7); Calc. Creatinine Clearance 130 mL/min (70-130); Calcium 8.9 mg/dL (7.8-10.44); Carbon Dioxide 31 mmol/L (23-31); Cardiac Risk 4.7 (Less than 4.5); Chloride 102 mmol/L (98-107); Cholesterol 141 mg/dl (< 200 Desired); Estimated GFR-MDRD Greater than 90; Glucose 112 mg/dL (83-110); HDL Cholesterol 30 mg/dL (>60 Neg Risk); LDL Cholesterol, Calculated 85 mg/dL; Potassium 4.2 mmol/L (3.5-5.1); Sodium 141 mmol/L (136-145); Triglycerides 130 mg/dL (Less than 150)
[2019-10-07 04:02] LABS: Troponin I 0.031 ng/mL (< 0.028)
[2019-10-07] MEDS ORDERED: Levothyroxine Sodium 50 MCG TAB PO SCH (06:00)
--- NOTE | 2019-10-07 06:22 | PDOC.FM ---
- Subjective Subjective: Pt getting echo when entering the room today. States his weakness is back to his baseline and he has not had any further slurred speech since admission. Denies any complaints. No events overnight. - Objective Vital Signs & Weight: Vital Signs (12 hours) Temp Pulse Resp BP Pulse Ox 10/07/19 03:48 97.9 F 60 18 179/71 H 93 L 10/06/19 23:26 98.1 F 18 197/96 H 92 L 10/06/19 22:08 60 160/74 H 10/06/19 22:01 165/85 H 10/06/19 20:20 97.9 F 85 18 204/80 H 85 L Weight Weight 116.828 kg Result Diagrams: 10/07/19 03:27 10/07/19 03:27 Phys Exam - Physical Examination Constitutional: NAD HEENT: moist MMs No respiratory distress Cardiovascular: RRR Neurological: moves all 4 limbs Chronic LLE weakness Psychiatric: normal affect, A&O x 3 Deviation from normal: Elephantitis of BLE Dx/Plan (1) History of CVA (cerebrovascular accident) Code(s): Z86.73 - PRSNL HX OF TIA (TIA), AND CEREB INFRC W/O RESID DEFICITS Status: Acute (2) History of heart attack Code(s): I25.2 - OLD MYOCARDIAL INFARCTION Status: Acute (3) Pacemaker Code(s): Z95.0 - PRESENCE OF CARDIAC PACEMAKER Status: Acute (4) COPD (chronic obstructive pulmonary disease) Status: Acute (5) DMII (diabetes mellitus, type 2) Status: Acute (6) Hypothyroid Code(s): E03.9 - HYPOTHYROIDISM, UNSPECIFIED Status: Acute - Plan Plan: TIA, CVA rule out - CT head: small to mod infarction in R anterior cerebral artery territory, occurring sometime after 08/28/18. uncertain of old vs subacute. 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 No acute hemorrhages. - CTA head and neck: Complete KYM occlusion, 40% stenosis of LICA, old appearing infarct among MCA distribution - MRI and TTEcho ordered. - [employer] rep to come and change pacemaker to MRI compatible mode - Previous echo in 09/12: ef 55-60% with diastolic dysfunction - A1c: 5.5 - FLP: WNL HTN - Permissive HTN, hold home BP meds x24 hrs DM II - [facility] of meds - A1c 5.5 CAD - Hx of [place] with X4 stents - Pacemaker placement 6 yrs ago Hypothyroidism - continue home meds. synthroid 50 mcg @ 0600 Atypical CP - Stat EKG: AV paced, no STEMI - Trop: 0.03, 0.031 - Pt states this occurs nightly - pending med rec - ordered nitrostat R eye Blindness - 2/2 DM complications - chronic Code status: Full code Diet: CC VTE ppx: SCD's. PT states he takes a blood thinner. Will continue once med reconciliation Dispo: stable, admit to tele inpt for TIA and CVA rule out. Addendum - Attending - Attending Attestation Date/Time: 10/07/19 [id number] I personally evaluated the patient and discussed the management with Dr. Mirza. I agree with the History, Examination, Assessment and Plan documented above with any addition or exceptions noted below. Patient reports feeling back to baseline. MRI pending. Has b/l ICA stenosis. Needs ASA, Statin, possible Plavix. Neuro consult pending MRI result. Therapy consults.
[2019-10-07] MEDS ORDERED: Lorazepam 1 MG TAB PO PRN (07:44)
[2019-10-07] MEDS: Nitroglycerin 0.4 MG TAB (25 Tab Bottle) SL PRN ×2 (08:47→16:08)
[2019-10-07] MEDS ORDERED: Furosemide 20 MG TAB PO SCH (09:00)
[2019-10-07] MEDS ORDERED: Aspirin 81 mg Enteric Coated Tablet PO SCH (09:00)
[2019-10-07] MEDS ORDERED: Lisinopril/Hydrochlorothiazide 10 mg/12.5 mg Tablet PO SCH (09:00)
[2019-10-07] MEDS ORDERED: Aspirin 325 mg Enteric Coated Tablet PO SCH (09:00)
[2019-10-07] MEDS ORDERED: Carvedilol 6.25 MG TAB PO SCH (09:00)
[2019-10-07 11:53] VITALS: TEMP 98.2
--- NOTE | 2019-10-07 14:08 | MRI ---
MRI BRAIN NONCONTRAST: DATE: 10/07/2019 HISTORY: 74-year-old male with stroke. Left-sided weakness. FINDINGS: Images degraded by motion. Absence of flow void in the right carotid siphon. Flow void in M1 segment of right middle cerebral ar ignacio is presumably via collateral flow from intact [place] of [place]. Moderate size region of right upper parietal encephalomalacia and gliosis without evidence of recent or remote hemorrhage. Small to moderate sized strip of encephalomalacia and gliosis in right parasagittal upper frontal lob e, including superior frontal gyrus and underlying right frontal centrum semiovale. No associated recent or remote hemorrhage. This was seen on the brain CT of 10/06/2019, but not on the brain CT of . The age of this infarction was indeterminate on that 10/06/2019 CT. This MRI now demonstrates that it is old. There is diffusely asymmetrically increased iron deposition in the bilateral putamen and caudate head s. No obstructive hydrocephalus, mass effect, midline shift, or extra-axial fluid collection. Mild to moderate diffuse chronic ischemic white matter changes. No restricted diffusion to indicate any acute infarction.. IMPRESSION: 1. Old infarction in right anterior cerebral artery territory. 2. Moderate-sized old infarction in right middle cerebral artery territory. 3. No acute infarction or any other acute intracranial findings. 4. 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 Reconstitution of right middle cerebral artery via [place] of [place].
[2019-10-07 15:34] VITALS: BP 198/89
[2019-10-07] MEDS ORDERED: hydrALAZINE 20 MG/ML VIAL SLOW IVP PRN (15:56)
[2019-10-07] MEDS ORDERED: Insulin Glargine 25 UNITS in Pre-Filled Syringe 1 EACH SC SCH (21:00)
[2019-10-07] MEDS ORDERED: Insulin Glargine 35 UNITS in Pre-Filled Syringe 1 EACH SC SCH (21:00)
[2019-10-08] MEDS ORDERED: Folic Acid/Vit B Comp W-C PO SCH (09:00)
--- NOTE | 2019-10-08 13:49 | DIS ---
DATE OF ADMISSION: 10/06/2019 DATE OF DISCHARGE: 10/07/2019 ADMITTING ATTENDING: Marco A Mariano MD. DISCHARGE ATTENDING: Marco A Mariano MD. RESIDENT: Zach Mirza DO. CONSULTATIONS: None. PROCEDURES: None. IMAGING: CTA head and neck 10/06/2019. Impression: Complete occlusion of the right ICA with reconstitution at the level of the right supraclinoid ICA through collaterals in the [place]. 40% luminal canal narrowing involving the origin of the left ICA. Poor visualization of the origin of the proximal aspect of the right vertebral artery; however, the visualized cervical segment appears widely patent. Intracranial course of the vertebral arteries appear patent. Remote appearing right MCA distribution infarct. Brain MRI, 10/07/2019. Impression: Old infarction in the right anterior cerebral artery territory. Moderate-sized old infarction in the right middle cerebral artery territory. No acute infarction or any other acute intracranial findings. Chronic occlusion of the right internal carotid artery. Reconstitution of the right middle cerebral artery via [place]. PRIMARY DIAGNOSES: 1. Transient ischemic attack. 2. History of cerebral vascular accident, atypical chest pain. SECONDARY DIAGNOSES: 1. Hypertension. 2. Type 2 diabetes. 3. Coronary artery disease. 4. Hypothyroidism. DISCHARGE MEDICATIONS: Throughout stay was unable to accurately compile patient's home medication list. Patient instructed to add the following medications, if not already takin. Plavix 75 mg daily. 2. Folic acid-Vitamin B complex 1 tab daily. HISTORY OF PRESENT ILLNESS AND HOSPITAL COURSE: A 74-year-old male with past medical history of previous CVA with chronic left-sided deficits, presented to the [place] ER with complaints of slurred speech and worsening left-sided deficits. Per history, it was noted that these symptoms were found by the patient's home health nurse around 11:30 a.m. on 10/05. CT at the [place] ER showed old versus subacute CVA and he was subsequently transported to [facility] for further workup and treatment. Upon arrival and exam, the patient stated his symptoms had completely resolved and that he had never really noticed any changes. The patient had a CTA of his head and neck performed, which resulted in only chronic findings as described above. The patient was admitted to the hospital for further workup and treatment of his TIA versus CVA. The following day, the patient continued to have resolution of the worsening of his baseline deficits. He had an MRI that confirmed that there was no new infarction. The patient was started on Plavix in addition to his home aspirin for dual anti-platelet therapy. The patient was also incidentally found to have a macrocytosis and was deficient in both folic acid and B12 and was instructed to start on an oral supplement of both these vitamins. The patient was deemed medically optimized and subsequently discharged the following day after admission. DISCHARGE INSTRUCTIONS: 1. Location: Home with home health. 2. Diet: Heart healthy/diabetic. 3. Activity: As tolerated by neurologic limits. 4. Followup: With PCP Dr. Horan within the next 7 days. Job ID: [id number]
== END 2019-10-07 18:00 | disposition home health service (06) | DRG 69 ==
LOC: ERS 16:23 → 2SE 17:51
PROVIDERS: ADMIT Internal Medicine; ATTEND Internal Medicine
DX: G45.9 Transient cerebral ischemic attack, unspecified (principal); I50.32 Chronic diastolic (congestive) heart failure; I69.354 Hemiplegia and hemiparesis following cerebral infarction affecting left non-dominant side; E78.5 Hyperlipidemia, unspecified; E03.9 Hypothyroidism, unspecified; J44.9 Chronic obstructive pulmonary disease, unspecified; E11.40 Type 2 diabetes mellitus with diabetic neuropathy, unspecified; R07.89 Other chest pain; I25.10 Atherosclerotic heart disease of native coronary artery without angina pectoris; R47.81 Slurred speech; M47.896 Other spondylosis, lumbar region; H54.61 Unqualified visual loss, right eye, normal vision left eye; I25.2 Old myocardial infarction; Z85.49 Personal history of malignant neoplasm of other male genital organs; Z95.5 Presence of coronary angioplasty implant and graft; Z95.0 Presence of cardiac pacemaker; Z87.891 Personal history of nicotine dependence; Z91.040 Latex allergy status
CPT/HCPCS: 36415; 36416; 70496; 70498; 70551; 80048; 80061; 82607; 82746; 83036; 84484; 85025; 93005; 93010; 93306; 96374; J0360; Q9967